=== PATIENT | female | born 1970 | race Caucasian/White ===

== ENCOUNTER 2018-01-30 17:23 | Emergency (ER) | payer OTHER ==
[~2018-01-30] VITALS: Ht 170.2 cm; Wt 104.3 kg
[~2018-01-30 17:23] MED LIST: (None)20 M1 PO; ALBU90OI INH; ALBU90OI61 INH; ASPI325B PO; ASPI81EC PO; CEPH250A PO; CEPH500 PO; CORTIZONE-10 PL28 GM TOP; CRUTCH4 USE; CYCL10 PO; FLUSAL2505 IH; FLUSAL2505 INH; HYDACE10B PO; HYDACE5 PO; HYDACE5325 PO; IBUP800 PO; LEVFLO500 PO; LEVSOD125 PO; LISI5 PO; METO25ER PO; Metoprolol Tar100 MG PO; Mupirocin22 GM TOP; NAPR500 PO; NAPR550 PO; PRED10 PO; PRED20 PO; PROM25 PO; Prednisone20 MG PO; RXCODGUASY PO; RXCYCL10 PO; RXHYDACE PO; RXLORA1 PO; RXONDA4ODT MM; SULF10OPSA OU; SULTRIDS PO; TRAM50 PO; Zithromax250 MG PO
[2018-01-30] MEDS ORDERED: ALBU90OI INH (18:17)
== END 2018-01-30 18:21 | disposition home or self-care (01) ==
LOC: ER 17:23
DX: M79.671 Pain in right foot (principal); J45.909 Unspecified asthma, uncomplicated; E03.9 Hypothyroidism, unspecified; I10 Essential (primary) hypertension; F17.210 Nicotine dependence, cigarettes, uncomplicated; Z86.14 Personal history of Methicillin resistant Staphylococcus aureus infection; Z88.8 Allergy status to other drugs, medicaments and biological substances; Z79.899 Other long term (current) drug therapy
CPT/HCPCS: 73630; 99283

== ENCOUNTER 2018-05-28 20:42 | Emergency (ER) | payer OTHER ==
[~2018-05-28] VITALS: Ht 162.6 cm; Wt 99.8 kg
[2018-05-28] MEDS ORDERED: Naprosyn500 MG PO (21:32)
== END 2018-05-28 21:40 | disposition home or self-care (01) ==
LOC: ER 20:42
DX: M25.552 Pain in left hip (principal); I10 Essential (primary) hypertension; E03.9 Hypothyroidism, unspecified; J45.909 Unspecified asthma, uncomplicated; F17.210 Nicotine dependence, cigarettes, uncomplicated; Z88.8 Allergy status to other drugs, medicaments and biological substances; Z79.899 Other long term (current) drug therapy; Z79.51 Long term (current) use of inhaled steroids
CPT/HCPCS: 99282

== ENCOUNTER → 2018-06-03 | Outpatient (CLI) | payer OTHER ==
[~2018-06-03] MED LIST changes: +Naprosyn500 MG PO
[2018-06-03 18:10] LABS: Free Thyroxine 0.37 ng/dL (0.70-1.60)
[2018-06-03 18:14] LABS: Thyroid Stimulating Hormone >100.000 uIU/mL (0.360-4.800)
== END | disposition home or self-care (01) ==
LOC: LAB EV 15:12 → LAB SHORT 15:12
PROVIDERS: Nurse Practitioner Family
DX: E03.9 Hypothyroidism, unspecified (principal)
CPT/HCPCS: 84439; 84443